=== PATIENT | female | born 1965 | race Caucasian/White ===

== ENCOUNTER 2018-09-25 14:54 | Emergency (ER) | payer OTHER ==
[~2018-09-25] VITALS: Ht 154.9 cm; Wt 61.7 kg
[~2018-09-25 14:54] MED LIST: CYMBALTA60 MG PO; FORMULA PO; METAXALONE800 MG PO; MULTIVITAMINS1 EAC7 PO; NAPROSYN500 MG PO; PREDNISONE 10 M10 MG PO; SYNTHROID125 MC1 PO; VICODIN 5-5001 EACH PO; VITAMIN D
[2018-09-25] MEDS ORDERED: HYDROXYCHLOROQ200 M1 PO (15:02)
[2018-09-25] MEDS ORDERED: CELEBREX 200 M200 M1 PO (15:02)
[2018-09-25] MEDS ORDERED: CYMBALTA20 MG PO (15:02)
[2018-09-25 16:34] LABS: HEMOGLOBIN 14.3 gm/dL (12.0-15.0); MCH 34.6 pg (26.0-34.0); MCHC 34.8 g/dL (28.0-37.0); MCV 99.3 fL (80.0-100.0); MPV 6.7 fl. (7.2-11.1); NUCLEATED RBCS 0 /100WBC; PLATELET COUNT* 298 thou/uL (150-400); RBC 4.13 mil/uL (4.20-5.00); RDW-CV 13.5 % (10.5-14.5); WBC 7.8 thou/uL (4.0-11.0)
[2018-09-25 16:44] LABS: ANION GAP 8 mmol/L (7-16); BUN 21 mg/dL (7-18); CALCIUM 9.1 mg/dL (8.5-10.1); CHLORIDE 103 mmol/L (98-107); CO2 28 mmol/L (21-32); CREATININE 0.7 mg/dL (0.6-1.3); GLUCOSE 96 mg/dL (70-99); POTASSIUM 4.1 mmol/L (3.5-5.1); SODIUM 139 mmol/L (136-145)
[2018-09-25 16:53] LABS: ALBUMIN 3.8 g/dL (3.4-5.0); ALKALINE PHOSPHATASE 51 U/L (46-116); SGOT 14 U/L (15-37); SGPT 24 U/L (30-65); TOTAL PROTEIN 6.6 g/dL (6.4-8.2); TROPONIN-I LEVEL <0.06 ng/mL (<0.06)
[2018-09-25 17:05] LABS: ABSOLUTE LYMPHOCYTES 0.6 thou/uL (0.8-5.3); ABSOLUTE MONOCYTES 0.1 thou/uL (0.0-1.2); ABSOLUTE NEUTROPHILS 7.1 thou/uL (1.6-8.1); PLATELET ESTIMATE ADEQUATE
[2018-09-25] MEDS ORDERED: PREDNISONE 10 M10 MG PO (17:55)
[2018-09-25] MEDS ORDERED: KEFLEX500 M1 PO (17:55)
[2018-09-25] MEDS ORDERED: SINGULAIR 10 MG10 M1 PO (18:14)
[2018-09-25 18:42] VITALS: BP 126/80
--- NOTE | 2018-09-26 17:14 | EKG ---
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 : 1965 Requested By: Oumou Ross Order Number: [id number] MD: Rufus Pride Measurements Intervals [place] Rate: 92 P: 85 ID: 118 QRS: 57 QRSD: 98 T: 44 QT: 366 QTc: 453 Interpretive Statements Sinus rhythm Borderline short ID interval Borderline T abnormalities, anterior leads Compared to ECG 02/01/2016 12:25:34 T-wave abnormality now present Electronically Signed On 09-26-2018 17:14:07 CDT by Rufus Pride [email or web address] <ELECTRONICALLY SIGNED> By: Rufus Pride MD, [facility] 09/26/18 1714 [id number] Rufus Pride MD, FACC /EPI
== END 2018-09-25 18:43 | disposition home or self-care (01) ==
LOC: M.ERS 14:54
PROVIDERS: Nurse Practitioner Family
DX: J45.901 Unspecified asthma with (acute) exacerbation (principal); F41.9 Anxiety disorder, unspecified; E03.9 Hypothyroidism, unspecified; Z90.49 Acquired absence of other specified parts of digestive tract; Z88.1 Allergy status to other antibiotic agents

== ENCOUNTER 2018-09-30 21:17 | Inpatient (IN) | payer OTHER ==
[~2018-09-30] VITALS: Ht 154.9 cm; Wt 64.0 kg
[~2018-09-30 21:17] MED LIST changes: +CELEBREX 200 M200 M1 PO; +CYMBALTA20 MG PO; +HYDROXYCHLOROQ200 M1 PO; +KEFLEX500 M1 PO; +SINGULAIR 10 MG10 M1 PO
[2018-09-30 21:28] VITALS: BP 143/80
[2018-09-30] MEDS ORDERED: ALBUTEROL2.5 MG/31 INH (21:31)
[2018-09-30 22:11] LABS: HEMATOCRIT 40.8 % (37.0-47.0); MCH 33.8 pg (26.0-34.0); MCHC 34.2 g/dL (28.0-37.0); MCV 98.9 fL (80.0-100.0); MPV 6.6 fl. (7.2-11.1); NUCLEATED RBCS 0 /100WBC; PLATELET COUNT* 303 thou/uL (150-400); RBC 4.13 mil/uL (4.20-5.00); RDW-CV 13.7 % (10.5-14.5); WBC 11.7 thou/uL (4.0-11.0)
[2018-09-30 22:26] LABS: CALCIUM 9.5 mg/dL (8.5-10.1); CREATININE 0.9 mg/dL (0.6-1.3); POTASSIUM 3.6 mmol/L (3.5-5.1)
[2018-09-30 22:31] LABS: ALBUMIN 3.6 g/dL (3.4-5.0); TOTAL BILIRUBIN 0.6 mg/dL (<0.1-1.0); TOTAL PROTEIN 6.4 g/dL (6.4-8.2)
[2018-09-30 22:34] LABS: PCO2 22.1 mmHg (35.0-45.0); PO2 114.5 mmHg (75.0-100.0)
[2018-09-30 22:36] LABS: pH 7.607 (7.340-7.450)
[2018-09-30 22:40] LABS: ABSOLUTE LYMPHOCYTES 0.4 thou/uL (0.8-5.3); ABSOLUTE MONOCYTES 0.5 thou/uL (0.0-1.2); ABSOLUTE NEUTROPHILS 10.9 thou/uL (1.6-8.1)
[2018-09-30 22:42] LABS: PLATELET ESTIMATE ADEQUATE
[2018-10-01] VITALS (7 sets, daily range): BP systolic 119–148; BP diastolic 70–92
[2018-10-01 00:02] LABS: PROTIME 10.1 Seconds (9.20-11.50)
--- NOTE | 2018-10-01 00:07 | NUR ---
PT BECAME NAUSEATED AND DRY HEAVING AFTER STARTING IV AZITHROMYCIN. PT GIVEN IV ZOFRAN WITH GOOD RESULTS. ZITHROMYCIN DISCONTINUED PER DR CODY.
--- NOTE | 2018-10-01 01:55 | NUR ---
REPORT GIVEN TO DEBORAH JUNG. PT BEING TRANSFERED TO ROOM 227.
--- NOTE | 2018-10-01 07:04 | NUR ---
PT ARRIVED TO ROOM FROM ER AROUND 0215. ABLE TO MAKE NEEDS KNOWN. NO C/O PAIN OR DISCOMFORT. ASSESSMENT COMPLETED CHARTED. UP AD SUSI IN ROOM. IV FLUIDS RUNNING PER P.O. PT RESTING IN BED AT THIS TIME. WILL CONTINUE TO MONITOR.
--- NOTE | 2018-10-01 10:56 | NUR ---
VSS, ASSUMED CARE IN THE AM, ASSESSMENT PERFORMED AND CHARTED, FALL PRECAUTIONS IN PLACE AND CALL LIGHT IN REACH, PT IS A&O4 AND ON RA, HEART RATE IS TRACING SR ON THE MONITOR, PT DENIES ANY PAIN, BUT FEELS SOA AT TIMES, SHE HAS BREATHING TRX ORDERED, PT GOAL IS TO IMPORVE ACTIVITY AND SIT UP IN CHAIR, WILL FOLLOW WITH PLAN OF CARE AND HOURLY ROUNDS.
--- NOTE | 2018-10-01 11:00 | NUR ---
MET WITH PT TO DISCUSS HOME SITUATION/DC PLANNING. PT LIVES WITH SPOUSE, WORKS OUTSIDE THE HOME AND IS INDEPENDENT AND ACTIVE. PT RECENTLY RECEIVED A NEBULIZER. VOICED FRUSTRATION WITH HER RESPIRATORY ISSUES AND IS WAITING ON PULMONARY CONSULT. SUPPORT OFFERED. DENIES DC NEEDS AT THIS TIME. WILL FOLLOW
--- NOTE | 2018-10-01 16:12 | EKG ---
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[place] : 1965 Requested By: Oksana Patel Order Number: [id number] MD: Ned Vázquez Measurements Intervals [place] Rate: 92 P: 72 RI: 117 QRS: 45 QRSD: 90 T: 36 QT: 337 QTc: 417 Interpretive Statements Sinus rhythm Borderline short RI interval Compared to ECG 09/25/2018 16:47:54 T-wave abnormality no longer present Electronically Signed On 10-01-2018 16:11:48 CDT by Ned Vázquez [email or web address] <ELECTRONICALLY SIGNED> By: Ned Vázquez MD, [facility] 10/01/18 1611 2143 [id number] Ned Vázquez MD, [facility] /EPI
--- NOTE | 2018-10-01 17:08 | 2DMMODE ---
[place] [address] 2 D/M-MODE ECHOCARDIOGRAM Name: YANELIS MELGAR Room: [facility] ADM IN [facility]#: [id number] Admission: 10/01/18 Attend Phys: Gladis Cordoba, Discharge: Date of : 65 Date of Service: 10/01/18 1708 Report #: [id number] THIS REPORT FOR: //name// APPROVED REPORT Study performed: 10/01/2018 14:54:58 EXAM: Comprehensive 2D, Doppler, and color-flow Echocardiogram Patient Location: In-Patient Room #: [facility] Status: routine BSA: 1.63 HR: 71 bpm BP: 136/87 mmHg Rhythm: NSR Other Information Study Quality: Good Indications Dyspnea 2D Dimensions IVSd: 10.13 (7-11mm) LVOT Diam: 20.06 (18-24mm) LVDd: 42.59 mm PWd: 10.12 (7-11mm) Ascending Ao: 26.59 (22-36mm) LVDs: 25.70 (25-40mm) Aortic Root: 29.54 mm Volumes Left Atrial Volume (Systole) LA ESV Index: 27.60 mL/m2 Aortic Valve AoV Peak Joey.: 1.01 m/s AO Peak Gr.: 4.12 mmHg LVOT Max P.04 mmHg AO Mean Gr.: 2.15 mmHg LVOT Mean P.61 mmHg LVOT Max V: 1.00 m/s AO V2 VTI: 18.87 cm LVOT Mean V: 0.57 m/s SHI (VTI): 3.40 cm2 LVOT V1 VTI: 20.31 cm Mitral Valve E/A Ratio: 1.52 MV Decel. Time: 194.76 ms MV E Max Joey.: 0.84 m/[place] [address] 2 D/M-MODE ECHOCARDIOGRAM Name: YANELIS MELGAR Room: [address] IN .R.#: [id number] Admission: 10/01/18 Attend Phys: Gladis Cordoba, Discharge: Date of : 65 Date of Service: 10/01/18 1708 Report #: [id number] MV PHT: 56.48 ms MVA (PHT): 3.90 cm2 TDI E/Lateral E': 6.00 E/Medial E': 6.46 Medial E' Joey.: 0.13 m/s Lateral E' Joey.: 0.14 m/s Pulmonary Valve PV Peak Joey.: 0.75 m/s PV Peak Gr.: 2.28 mmHg Tricuspid Valve RAP Estimate: 5.00 mmHg TR Peak Gr.: 15.30 mmHg RVSP: 20.00 mmHg PA Pressure: 20.00 mmHg Left Ventricle The left ventricle is normal size. There is normal LV segmental wall motion. There is normal left ventricular wall thickness. Left ventricular systolic function is normal. The left ventricular ejection fraction is within the normal range. LVEF is 55-60%. The left ventricular diastolic function is normal. Right Ventricle The right ventricle is normal size. The right ventricular systolic function is normal. Atria The left atrium size is normal. The right atrium size is normal. Aortic Valve The aortic valve is normal in structure. No aortic regurgitation is present. There is no aortic valvular stenosis. Mitral Valve The mitral valve is normal in structure. Mild mitral regurgitation. No evidence of mitral valve stenosis. Tricuspid Valve The tricuspid valve is normal in structure. Trace tricuspid regurgitation. No pulmonary hypertension. Pulmonic Valve The pulmonary valve is normal in structure. There is no pulmon[place] [address] 2 D/M-MODE ECHOCARDIOGRAM Name: YANELIS MELGAR Room: [address] IN [facility]#: [id number] Admission: 10/01/18 Attend Phys: Gladis Cordoba, Discharge: Date of : 65 Date of Service: 10/01/18 1708 Report #: [id number] Great Vessels The aortic root is normal in size. IVC is normal in size and collapses >50% with inspiration. Pericardium There is no pericardial effusion. <Conclusion> Left ventricular systolic function is normal. The left ventricular ejection fraction is within the normal range. <ELECTRONICALLY SIGNED> By: Ned Vázquez MD, FACC 10/01/18 170 07 07 Ned Vázquez MD, FAC /INF
[2018-10-02 00:49] VITALS: BP 107/77
[2018-10-02 04:00] VITALS: BP 110/72
[2018-10-02 05:20] LABS: ABSOLUTE EOSINOPHILS 0.2 thou/uL (0.0-0.7); ABSOLUTE LYMPHOCYTES 1.8 thou/uL (0.8-5.3); ABSOLUTE MONOCYTES 0.6 thou/uL (0.0-1.2); ABSOLUTE NEUTROPHILS 5.8 thou/uL (1.6-8.1); BASOPHILS 0.2 %; EOSINOPHILS 2.5 %; HEMATOCRIT 42.1 % (37.0-47.0); LYMPHOCYTES 20.9 %; MCH 33.8 pg (26.0-34.0); MCHC 33.3 g/dL (28.0-37.0); MCV 101.5 fL (80.0-100.0); MPV 6.7 fl. (7.2-11.1); NUCLEATED RBCS 0 /100WBC; PLATELET COUNT* 253 thou/uL (150-400); POLYS 69.4 %; RBC 4.15 mil/uL (4.20-5.00); RDW-CV 13.8 % (10.5-14.5); WBC 8.4 thou/uL (4.0-11.0)
[2018-10-02 05:25] LABS: CALCIUM 8.3 mg/dL (8.5-10.1); CREATININE 0.4 mg/dL (0.6-1.3); POTASSIUM 4.4 mmol/L (3.5-5.1)
--- NOTE | 2018-10-02 07:00 | NUR ---
PT IS REFUSING TO TAKE RESPIRATORY TXS, CAN WE MAKE TREATMENTS PRN
--- NOTE | 2018-10-02 07:49 | NUR ---
ASSUMED PT CARE AT 1930. ASSESSMENT COMPLETED CHARTED. ABLE TO MAKE NEEDS KNOWN. UP AD SUSI, IV FLUIDS RUNNING PER ORDERS. NO C/O PAIN OR DISCOMFORT. RESTING IN BED AT THIS TIME, STATED SHE WAS FINALLY ABLE TO SLEEP LAST NIGHT. VSS. WILL CONTINUE TO MONITOR.
[2018-10-02 08:19] VITALS: BP 108/70
--- NOTE | 2018-10-02 08:30 | CON ---
[address] [address] CONSULTATION Name: YANELIS MELGAR Room: [place] [address] ADM IN .R.#: [id number] Admission: 10/01/18 Attend Phys: Gladis Cordoba MD Discharge: Date of : 65 Report #: [id number] THIS REPORT FOR: //name// CC: Norm Rasmussen DATE OF SERVICE: 10/01/2018 PULMONARY CONSULTATION ATTENDING PHYSICIAN: Norm Quiroz MD She was admitted early this morning from the Emergency Room and she is located in room 227. INDICATION FOR CONSULTATION: Dyspnea on exertion. CLINICAL SUMMARY: The patient is a 52-year-old female, nonsmoker, who has had dyspnea for the last month or 2. She came in the Emergency Room this morning saying she was more short of breath. Her room air sats have been fine. CT angio of the chest was negative. The patient's history is about a month to mnlev-rpo-u-half ago, she went out four wheeling with her . She states they were in some dry climate and outdoors and then she came back and then she was spray painting her jeep, thought she had some paint inhalation, although she was outdoors when she was spray painting and had a sore throat, had 4 days of laryngitis and then she felt relatively better. Then several days or weeks later, she may have had some cough and shortness of breath. She had a Medrol Dosepak from her primary care physician and had prednisone and actually took some breathing treatments from her primary care physician, really did not notice any improvement. She does not cough or wheeze. She feels like her chest is tight. At times, she just cannot tell whether she has more trouble getting her breath in or blowing it out. She denies any coronary artery disease or heart disease. She denies any esophageal reflux or sinus drainage. She has not had a history of DVT or pulmonary emboli. Her history, even 3 years ago, she was seen for dyspnea, in the Emergency Room, they gave her a round of prednisone and a short-acting inhaler, but her chest x-ray was negative and she was wheezing according to the ER physician's note. She has a diagnosis of mixed connective tissue disease for which she has been on Plaquenil or hydroxychloroquine 200 mg daily for the last 2-3 years. She states she has had pain in her shoulders and in her right hip. She has not been steroid-dependent for mixed connective tissue disease. Her sister was in the room when we talked. The patient does not have a history of obstructive sleep apnea with loud snoring and restless sleep. I [place] [address] CONSULTATION Name: YANELIS MELGAR Room: [address] IN [facility].#: [id number] Admission: 10/01/18 Attend Phys: Gladis Corodba MD Discharge: Date of : 65 Report #: [id number] PAST MEDICAL HISTORY: Again, history of dyspnea in the past and a history of mixed connective tissue disease. She has had some neck surgery for some arthritis in her neck. She has had hypothyroidism and cholecystectomy and some anxiety in the past. OUTPATIENT MEDICATIONS: She was on montelukast and prednisone and she was off those now. Her other meds include levothyroxine 125 mcg one tablet daily, Cymbalta was 20 mg daily for chronic pain, Celebrex 200 mg at bedtime for chronic pain and hydroxychloroquine 200 mg at bedtime, then has albuterol nebulizers at home, has had several prednisone tapers. She is not on oxygen and she is not on any further prednisone or antibiotics at this time. FAMILY HISTORY: Negative for premature cardiopulmonary disease. Positive for arthritis. SOCIAL HISTORY: She is , with her , works at [employer] Denies any occupational exposure. 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 She is a drinker, 2 beers a day. Occasionally, she will do that once or twice a week and occasionally have a shot of whiskey with it. She denies being an alcoholic. She did not have asthma as a child that she is aware of. REVIEW OF SYSTEMS: A 14 review of systems reviewed and negative except for the pertinent positives noted in the HPI. PHYSICAL EXAMINATION: GENERAL: A healthy appearing 50-year-old female, who is lying flat in bed. Can talk to me in sentences. She is not dyspneic at this time. Her sister is with her also in the room. VITAL SIGNS: Blood pressure is 136/88, heart rate 72, respirations 16 and she is not in any distress. Temperature is 37.1, room air sat even with nail korean on is a 99%. She is 5 feet 4 inches tall, weight 64 kilograms or 142 pounds, BMI is 27. HEENT: Unremarkable. Pharynx is clear, is not crowded. Mallampati score of 1-2. NECK: Supple, without nodes. Mild incision in her left neck space lateral part above left clavicle. No masses or adenopathy. There is no inspiratory stridor when I listen over the sternal notch. CHEST: Otherwise is clear without wheeze or rhonchi. No prolonged expiratory phase on forced expiration. No inspiratory crackles or rhonchi. CARDIOVASCULAR: Regular rate and rhythm without murmur, gallop or rub. Heart rate 72. ABDOMEN: Soft, without masses or megaly. EXTREMITIES: No calf tenderness. No cyanosis, clubbing or edema. MUSCULOSKELETAL: Not much pain or tenderness on knees or hips. NEUROLOGIC: Nonfocal and she moves all fours [place] [address] CONSULTATION Name: YANELIS MELGAR Room: [address] IN [facility].#: [id number] Admission: 10/01/18 Attend Phys: Gladis Cordoba MD Discharge: Date of : 65 Report #: [id number] LABORATORY DATA: Hemoglobin is 14, white count is 11,700, platelets are 303,000, normal differential was noted. Sodium is 139, potassium is 3.6. Carbon dioxide is 26, BUN is 16, creatinine is 0.9, glucose is 159, appears her lactic acid level was high yesterday evening and 4.8 and went down to 2.9 and 1.7 just with IV fluids. Etiology of that is unclear. LFTs were within normal limits. Albumin is 36. Chest x-ray and CT angio of the chest is within normal limits. No masses, adenopathy, does not look like she has pulmonary artery enlargement or pulmonary artery hypertension, no prior PFTs on this patient. IMPRESSION: Dyspnea, etiology unclear. I do not think she has asthma or wheezing. Really does sound like she has obstructive airways disease or reactive airways disease. Could be just from mixed connective tissue disease and mild restrictive defect with some mild dyspnea. She has been on Symbicort in the past without much improvement. Could be from anxiety and supratentorial reasons. PLAN: Do some basic workup. We will try and do some bedside spirometry and do a room air exercise oximetry and see where we are at. Full workup as an outpatient would include full PFTs to make sure she did not have obstructive restrictive lung defect and also possibly a full polysomnography to make sure she does not have sleep apnea. Also, consider 2D echocardiogram also to look for pulmonary artery hypertension and make sure she does not have that with her history of mild mixed connective tissue disease. If all the above is negative, she may just have some anxiety, may benefit from some psychological training, some biofeedback and maybe do an exercise program. Again, I told her I did not see any severe underlying lung disease that would be life threatening, but we will do the workup over the next day or 2 and see if we can get this figured out. I do not think she will require supplemental oxygen at home. If there is only minimal disease, I think the montelukast 10 mg daily and a p.r.n. inhaler would be good ideas. This has been moderate to moderately severe complexity consult with medical decision making. Further code 34501. <ELECTRONICALLY SIGNED> By: Luis Fink MD 10/02/18 0830 1154 [id number] Fink MD /nt
--- NOTE | 2018-10-02 09:55 | NUR ---
ASSUMED CARE OF PT THIS AM AROUND 0715- HAIR BLENDER IN PLACE ORDERED, TRACING SR- UPON ASSESSMENT PT NOTED TO BE RESTING IN BED- PT A&O X4- CONTINENT OF BOWEL AND BLADDER- UP AD-SUSI IN ROOM, STEADY GAIT NOTED- LCTA, RESP EVEN AND UN-LABORED- VSS, O2 SAT 98% ON RA- ABD SOFT/ROUND/NON-TENDER, BS X 4 QUADS- LAST BM REPORTED 10/01/18- IV NOTED TO RIGHT WRIST INTACT, IVF INFUSSING PRESCIBED- PT DENIES ANY C/O PAIN/DISCOMFORT AT THIS TIME- CALL LIGHT AND PERSONAL BELONGINGS WITH IN REACH- PT MAKES NEEDS KNOWN- ALL NEEDS MET AT THIS TIME-WCTM
[2018-10-02 11:08] VITALS: BP 108/70
--- NOTE | 2018-10-02 12:41 | NUR ---
ORDERS RECEIVIED FOR [facility] TO D/C TO HOME THIS SHIFT PER IF OKAY PER PULMONARY- HERE TO ASSESS WITH SCRIPT PROVIED FOR SINGULAIR AND OKAY TO D/C HOME- IV TO RIGHT HAND D/C'D ALONG WITH CAR SUPPLIER PRIOR TO D/C- D/C EDUCATION/TEACHING/NEEDED FOLLOW UP'S COMMUNICATED TO PT, WITH VERBAL UNDERSTANDING RECIEVIED PER PT- WRITTEN EDUCATION ALONG WITH SCRIPTS PROVIDED TO PT AT TIME OF D/C, ALL QUESTIONS AND CONCERNS ADDRESSED PRIOR TO D/C- BELONGINGS PACKED AND ACCOUNTED FOR PER PT- PT CURRENTLY DRESSED UP IN BED SIDE CHAIR, AWAITTING RIDE FOR D/C- ALL NEEDS MET AT THIS TIME-WCTM
== END 2018-10-02 13:32 | disposition home or self-care (01) | DRG 189 ==
LOC: M.ERS 21:17 → M.2W 10-01 00:52 → M.TBA-ER 10-01 00:52 → M.2W 10-01 02:34
PROVIDERS: Internal Medicine; Personal Emergency Response Attendant; ADMIT Internal Medicine
DX: J96.00 Acute respiratory failure, unspecified whether with hypoxia or hypercapnia (principal); R65.11 Systemic inflammatory response syndrome (SIRS) of non-infectious origin with acute organ dysfunction; E87.3 Alkalosis; E87.2 Acidosis; E03.9 Hypothyroidism, unspecified; F41.9 Anxiety disorder, unspecified; Z90.49 Acquired absence of other specified parts of digestive tract; Z79.899 Other long term (current) drug therapy; Z88.1 Allergy status to other antibiotic agents